=== PATIENT | female | born 1995 | race Caucasian/White ===

== ENCOUNTER 2021-04-15 13:50 | Emergency (ER) | payer OTHER, SELFPAY ==
[2021-04-15 14:09] VITALS: BP 131/80; PULSE 89; RESP 16; TEMP 36.1; O2SAT 99
--- NOTE | 2021-04-15 14:18 | ED.URI ---
HPI - URI/Sore Throat General Chief Complaint: Upper Respiratory Infection Stated Complaint: Congestion Time Seen by Provider: 04/15/21 14:18 Source: patient Mode of arrival: ambulatory Limitations: no limitations History of Present Illness HPI Narrative: 25 yo F presents with c/o nasal congestion, sore throat, productive cough, fatigue for 4 days. afebrile. Not taking any OTC meds to treat symptoms. Has done a covid test the last 3 days and all of them were negative. Denies SOB/CP. All systems reviewed and negative except as noted above. Related Data Home Medications Medication Instructions Recorded Confirmed bupropion HCl 300 mg PO DAILY 04/15/21 04/15/21 levonorgestrel-ethinyl estrad 1 tablet PO DAILY 04/15/21 04/15/21 sertraline 100 mg PO DAILY 04/15/21 04/15/21 Review of Systems Review of Systems: CONSTITUTIONAL: Denies fever, chills, or sweats. Reports fatigue EYES: Denies visual changes, redness, or discharge. ENT: Reports rhinorrhea, congestion, sore throat. Denies otalgia. CARDIOVASCULAR: Denies chest pain, palpitations, or edema. RESPIRATORY: Reports cough. Denies dyspnea. GASTROINTESTINAL: Denies abdominal pain, nausea, vomiting, or diarrhea. GENITOURINARY: Denies dysuria or hematuria. SKIN: Denies rash or itching. MUSCULOSKELETAL: Denies back pain, joint pain, or myalgia. NEUROLOGIC: Denies headache, numbness, or weakness. PSYCHIATRIC: Denies anxiety or depression. All other systems reviewed are negative, except as documented in HPI. PMFSH Comments At time of signature, agree with nursing past medical, surgical, social and family history. There is no relevant family history pertinent to the presenting complaint. Exam Narrative: GENERAL: This is a well-nourished, well-developed patient, in no apparent distress. HEAD: normocephalic, atraumatic. EYES: PERRL. Sclera clear/white. Vision is grossly intact. EARS: External ears normal, auditory canals clear and without drainage, TMs normal without perforation. Hearing grossly intact. NOSE: External nose normal. Congestion, clear nasal drainage with erythematous nares bilaterally. THROAT: Mucous membranes moist, posterior pharynx clear. Erythema to posterior pharynx. No exudates or swelling. NECK: Neck supple, non-tender without lymphadenopathy, masses or thyromegaly. CARDIOVASCULAR: Regular rate and rhythm without murmurs, gallops, or rubs. RESPIRATORY: Clear to auscultation. Breath sounds equal bilaterally. No wheezes, rales, or rhonchi. GASTROINTESTINAL: Abdomen soft, non-tender, nondistended. Bowel sounds are active. No hepato-splenomegaly, or palpable masses. No guarding. SKIN: warm, Dry, intact with no suspicious lesions or rash, good texture and turgor. NEURO: awake, alert, and oriented to person, place and time. There were no obvious focal neurologic abnormalities. EXTREMITIES: No joint tenderness, effusion, or edema noted. No calf tenderness. Negative Homans sign bilaterally. BACK: Nontender without deformity. No CVA tenderness. Course Course Level of Care: Express Care Visit Vital Signs Vital signs: Vital Signs Temperature 36.1 C L 04/15/21 14:09 Pulse Rate 89 04/15/21 14:09 Respiratory Rate 16 04/15/21 14:09 Blood Pressure 131/80 04/15/21 14:09 Pulse Oximetry 99 04/15/21 14:09 Temperature 36.1 C L 04/15/21 14:09 Pulse Rate 89 04/15/21 14:09 Respiratory Rate 16 04/15/21 14:09 Blood Pressure 131/80 04/15/21 14:09 Pulse Oximetry 99 04/15/21 14:09 Reviewed MDM - URI/Sore Throat MDM Narrative Medical decision making narrative: Patient is aware of diagnosis, understands and agrees to treatment plan. Anticipatory guidance given. Patient agrees to follow-up as directed and is aware of reasons to seek care at the emergency department. Portions of this record may have been created with voice recognition software Discharge Plan Discharge Clinical Impression: Upper respiratory infection, viral Patient Dispositi
== END 2021-04-15 14:47 | disposition home or self-care (01) ==
PROVIDERS: Emergency Provider Nurse Practitioner Family; PCP Family Medicine
DX: J06.9 Acute upper respiratory infection, unspecified (principal); F41.9 Anxiety disorder, unspecified; F32.A Depression, unspecified
CPT/HCPCS: 87081; 87804; 87880; 99203; G0463

== ENCOUNTER 2021-08-15 11:01 | Emergency (ER) | payer OTHER, SELFPAY ==
[2021-08-15 11:09] VITALS: BP 122/86; PULSE 116; RESP 20; TEMP 36.2; O2SAT 98
--- NOTE | 2021-08-15 11:13 | ED.GENADULT ---
HPI - General Adult General Chief complaint: Upper Respiratory Infection Stated complaint: Sore Throat,Dizziness History of Present Illness HPI narrative: Patient is a 25-year-old female who presents to the hospital via POV for evaluation of upper respiratory symptoms that have been present for 3 days. Reports sore throat, ear drainage, and a subtle, dry cough. Her symptoms are alleviated with mucus relief and DayQuil. Patient reports taking a COVID test every 3 hours for the past 3 days all of which were negative.-Recently tested positive for COVID. She is fully vaccinated against COVID. Related Data Home Medications Medication Instructions Recorded Confirmed bupropion HCl 300 mg 24 hr tablet, 300 mg PO DAILY 04/15/21 08/15/21 extended release sertraline 100 mg tablet 100 mg PO DAILY 04/15/21 08/15/21 lisdexamfetamine 50 mg capsule 50 mg PO DAILY 08/15/21 08/15/21 (Vyvanse) Allergies Allergy/AdvReac Type Severity Reaction Status Date / Time No Known Allergies Allergy Verified 08/15/21 11:02 Review of Systems Review of Systems: Denies history of COPD, bronchitis, asthma, and pneumonia. Denies current/past tobacco use. Pertinent negatives: fever, sweats, chills, change in appetite, fatigue, skin color changes, headache, nasal congestion/discharge, dizziness, lymphadenopathy, sinus problems, ear pain, drooling, ALTE swallowing, chest pain, heart murmurs, heart palpitations, shortness of breath, wheezing, cyanosis, hemoptysis, hoarseness, orthopnea, pleuritic pain, nausea, vomiting, diarrhea, and myalgias. PMFSH Past Medical History Medical History Anxiety IBS (irritable bowel syndrome) Family History Family History Other Alcoholism Depression Heart disease Hypertension Social History Social History Smoking status: Never smoker Alcohol intake: current Substance use: current Substance use type: marijuana Comments reviewed Exam Narrative: GENERAL: Well-appearing, well-nourished, and in no acute distress. HEAD: Normocephalic, atraumatic. No sinus tenderness or facial swelling appreciated. EYES: PERRLA and EOMI. No evidence of erythema, swelling, or drainage. ENT: Bilateral external ears and ear canals normal. Bilateral TMs are normal.No TM perforation. Nares clear, no rhinorrhea or epistaxis. Bilateral turbinates without erythema/ swelling. Mucous membranes moist and pink. Uvula is midline without erythema and swelling. No evidence of petechial rash, cobblestoning, lesions, ulcers, erythema, swelling, exudates, peritonsillar abscess, tenting, or drooling. Breath odor and voice normal. NECK: Supple. No Lymphadenopathy or nuchal rigidity appreciated. CHEST: Bilateral lung zuñiga are clear to auscultation. No respiratory distress. No evidence of pleuritic cp upon examination. Subtle dry cough appreciated upon examination HEART: Tachycardia with rate of 116. Regular rhythm. No murmur, gallop, or rub heard. EXTREMITIES: Normal range of motion. No edema. SKIN: Warm, dry, no rash. NEURO: No focal deficits. Alert and oriented x3. Course Course Level of Care: Express Care Visit Vital Signs Vital signs: Vital Signs Temperature 97.2 F L 08/15/21 11:09 Pulse Rate 116 H 08/15/21 11:09 Respiratory Rate 20 08/15/21 11:09 Blood Pressure 122/86 08/15/21 11:09 Pulse Oximetry 98 08/15/21 11:09 Oxygen Delivery Room Air 08/15/21 11:09 Temperature 97.2 F L 08/15/21 11:09 Pulse Rate 116 H 08/15/21 11:09 Respiratory Rate 20 08/15/21 11:09 Blood Pressure 122/86 08/15/21 11:09 Pulse Oximetry 98 08/15/21 11:09 Oxygen Delivery Room Air 08/15/21 11:09 Medical Decision Making Differential Diagnosis Differential Diagnosis: Allergic rhinitis, ABRS, acute viral sinusitis, str
== END 2021-08-15 11:32 | disposition home or self-care (01) ==
PROVIDERS: Emergency Provider Nurse Practitioner Family; PCP Family Medicine
DX: J06.9 Acute upper respiratory infection, unspecified (principal); Z20.822 Contact with and (suspected) exposure to COVID-19
CPT/HCPCS: 87081; 87426; 87880; 99213; C9803; G0463

== ENCOUNTER 2024-07-24 11:47 | Outpatient (CLI) | payer OTHER, SELFPAY ==
--- NOTE | ~2024-07-24 | US_ITS ---
Pelvic ultrasound. Clinical History: IUD assessment Technique: Realtime transabdominal and transvaginal scanning of the pelvis was performed. Color flow Doppler and Doppler spectral analysis were performed. Findings: The uterus is anteverted. The endometrial stripe has a thickness of 4 mm. IUD in satisfact ory position. No focal mass is identified. The right ovary measures 3.8 x 2.4 x 2.2 cm. No significant right ovarian or adnexal mass is seen. The left ovary measures 3.9 x 2.9 x 3.2 cm. No significant left ovarian or adnexal mass is seen. There is no evidence of free fluid in the cul de sac. Impression: IUD in satisfactory position. Reviewed, dictated and finalized at location . Impression: IUD in satisfactory position.
== END 2024-07-24 11:48 | disposition home or self-care (01) ==
LOC: MICIMG 11:48
PROVIDERS: PCP Obstetrics & Gynecology; Visit Provider Obstetrics & Gynecology
DX: T83.32XA Displacement of intrauterine contraceptive device, initial encounter (principal); Z30.431 Encounter for routine checking of intrauterine contraceptive device
CPT/HCPCS: 76830; 76856